=== PATIENT | female | born 1985 | race Caucasian/White ===

== ENCOUNTER → 2018-05-01 | Outpatient (CLI) | payer OTHER ==
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
== END | disposition home or self-care (01) ==
LOC: KCIC MRI 08:50
PROVIDERS: ATTEND Orthopaedic Surgery Sports Medicine
DX: M75.102 Unspecified rotator cuff tear or rupture of left shoulder, not specified as traumatic (principal); M85.612 Other cyst of bone, left shoulder
CPT/HCPCS: 73221

== ENCOUNTER 2018-06-03 08:25 | Day surgery (SDC) | payer OTHER ==
[~2018-06-03] VITALS: Ht 175.3 cm; Wt 142.9 kg
[~2018-06-03 08:25] MED LIST: CLINDAMYCIN 900MG PREMIX 50 ML IV PRN; HYDROmorphone 2 MG/ML VIAL IV PRN; IV RINGERS,LACTATED 1000ML 1,000 ML IV SCH; LIDOCAINE 1% PF 2 ML VIAL. ID PRN; LORA10TA68 PO; MORPHINE SULFATE 2 MG/ML VIAL. IV PRN; ONDANSETRON PF 4 MG/2 ML VIAL. IV PRN; PROCHLORPERAZINE 10 MG/2 ML VIAL. IV PRN; TRAM50TA PO; fentaNYL PF VIAL 100 MCG/2 ML VIAL IV PRN
[2018-06-03] MEDS ORDERED: ROCURONIUM 50 MG/5 ML VIAL. ONE (09:17)
[2018-06-03] MEDS ORDERED: PROPOFOL 20 ML IV ONE ×2 (09:17→10:45)
[2018-06-03] MEDS ORDERED: LIDOCAINE 1% PF 5 ML VIAL. ONE (09:17)
[2018-06-03] MEDS ORDERED: fentaNYL PF VIAL 100 MCG/2 ML VIAL ONE (09:17)
[2018-06-03] MEDS ORDERED: DEXAMETHASONE SOD PHOS 20 MG/5 ML VIAL. ONE (09:45)
[2018-06-03] MEDS ORDERED: ROPIVacaine 0.5% PF 20 ML VIAL. ONE ×2 (09:45→09:48)
[2018-06-03] MEDS ORDERED: MIDAZOLAM HCL/PF 2 MG/2 ML VIAL. ONE (09:49)
[2018-06-03] MEDS ORDERED: BUPIVACAINE MPF 0.5% 30 ML VIAL. ONE (10:00)
[2018-06-03] MEDS ORDERED: LIDOCAINE 1% 20 ML VIAL. ONE (10:00)
[2018-06-03 10:31] LABS: U PREG PATIENT NEGATIVE (NEG)
[2018-06-03] MEDS ORDERED: NEOSTIGMINE METHYLSULFATE 5 MG/5 ML SYRINGE. ONE (10:46)
[2018-06-03] MEDS ORDERED: GLYCOPYRROLATE 1 MG/5 ML VIAL. ONE (10:46)
[2018-06-03] MEDS ORDERED: ONDANSETRON PF 4 MG/2 ML VIAL. ONE (10:46)
--- NOTE | 2018-06-03 11:44 | PDOC4 ---
Operative Note Operative Note Date of procedure: 06/03/2018 Surgeon: Julian Mcgowan Preoperative diagnosis: Left shoulder incomplete rotator cuff tear Postoperative diagnosis: Same Procedure performed: Left shoulder arthroscopic rotator cuff repair Anesthesia: Gen. plus regional nerve block Findings: Near full-thickness tear and infraspinatus, 1 cm in length Intact labrum Intact glenohumeral cartilage No loose bodies Remainder rotator cuff showed no gross pathology Biceps tendon without pathology No loose bodies Components inserted: Saleh and nephew helacoil anchor Complications: None Blood loss: 10 mL Reason for procedure: Patient is a very pleasant 32-year-old female with persistent shoulder pain and dysfunction. Clinical and radiographic examination including MRI were consistent with the preoperative diagnosis and after discussion of the risks, benefits, and alternatives as well as. A linear of conservative therapies, we discussed proceeding with the above surgery and she wished to proceed. Description of procedure: Patient was greeted in the preoperative holding area by myself for the correct extremity was verified and marked. She is in taken to the operative suite after placement of a regional nerve block by the anesthesiology team. Once in the operating room, she was transferred gently supine to the operating table. Her antibiotics were started. She had successful induction of a general anesthetic and was then sat up in a beachchair position with a large pad under her legs, secured the bed with all pressure points padded and C-spine maintained in neutral position. We then proceeded to prep and drape left upper extremity and shoulder girdle in our usual sterile fashion including [place] at the periphery. Timeout was conducted. I palpated and marked surface anatomy and used a spinal needle to localize my posterior superior portal and incised skin in accordance with this. I introduce the blunt arthroscopic trocar followed by the camera. I then used a spinal needle to localize an anterosuperior portal and incised skin in accordance with this. I dilated this hole and introduce my probe. I then conducted my diagnostic arthroscopy with the above-noted findings. I then debrided the rotator cuff tear from an intra-articular vantage point and then shuttled a PDS suture through the tear to humble it. I then removed my arthroscopic interpretation from the intra-articular space and repositioned into the subacromial space and used a spinal needle to localize a lateral portal and incised skin and dilated this hole. I then used my shaver and cautery device to perform a bursectomy. Identified the PDS suture and was easily able to violate the substance of the tendon with the blunt trocar. I then took down the rotator cuff tendon at this area and used the shaver to debride the unhealthy tissue. I prepared my footprint, taking care not to decorticate. After this, I placed my suture anchor which gave good fixation. I then used the suture passing device to shuttle the suture limbs through in a simple configuration and tied these down from posterior to anterior using arthroscopic knot-tying techniques. The tear was stable to gentle motion at her shoulder. I then removed all loose debris and the excess arthroscopic fluid followed by the instrumentation. The portals were closed with simple interrupted 3-0 nylon. It should be noted I did create an anterolateral portal under spinal needle localization to assist with suture management for this procedure. At the conclusion of surgery, the shoulder and arm were cleansed and dried and a sterile dressing was applied followed by an abduction pillow sling. She was laid supine and transferred gently supine to the recovery room cart. She tolerated surgery well. No complications. She was then taken to the PACU in a stable and extubated condition. Postoperative plan is to discharge her home, nonweightbearing in sling 4 weeks. I'll see her back in 2 weeks, sooner should a problem arise JULIAN MCGOWAN II, MD Jun 03, 2018 11:44
[2018-06-03] MEDS ORDERED: oxyCODONE/APAP 5/325 1 TAB TABLET PO ONE (12:15)
--- NOTE | 2018-06-03 12:15 | DISCH ---
DISCHARGE INSTRUCTIONS Condition on Discharge Condition on Discharge: Stable Activity After Discharge Activity Instructions for Disc: Other ROM activity Other activity instructions: arm to remain in sling Bathing Instructions: Shower-keep dressing dry Weight Bearing Status after Di: Non weight bearing Wound Incision Care Wound/Incision Care: Ice to area for comfort, Keep wound/cast CDI, Change dressing Other wound/incision instructi: ok to change dressing in [address] after DC Call your doctor for: Concerns you may have Follow-Up Follow up with: Lois in 2 wks Follow Up With: PT within 1 wk CRISTINA MCGOWAN II, MD Jun 03, 2018 12:15
[2018-06-03] MEDS ORDERED: OXYC-323 PO (12:22)
[2018-06-03] MEDS ORDERED: ONDA8TAB12 PO (12:23)
[2018-06-03] MEDS ORDERED: DOCU-109 PO (12:23)
[2018-06-03 13:00] VITALS: BP 140/60
== END 2018-06-03 14:03 | disposition home or self-care (01) ==
LOC: SURG 08:25
PROVIDERS: ATTEND Orthopaedic Surgery Sports Medicine
DX: S46.012A Strain of muscle(s) and tendon(s) of the rotator cuff of left shoulder, initial encounter (principal); X58.XXXA Exposure to other specified factors, initial encounter; Y93.89 Activity, other specified; Y92.89 Other specified places as the place of occurrence of the external cause; Y99.8 Other external cause status
CPT/HCPCS: 29827; 81025; A7015; C1713; C1782; J1100; J2250; J2405; J2704; J2710; J2795; J3010; J3490; J7120

== ENCOUNTER → 2018-07-16 | Outpatient (CLI) | payer OTHER ==
[~2018-07-16] MED LIST changes: +BUPIVACAINE MPF 0.5% 10 ML VIAL for KCIC. IJ ONE; -CLINDAMYCIN 900MG PREMIX 50 ML IV PRN; +DOCU-109 PO; -HYDROmorphone 2 MG/ML VIAL IV PRN; +IOHEXOL 300 MG/ML 50 ML VIAL. INT ART ONE; -IV RINGERS,LACTATED 1000ML 1,000 ML IV SCH; +LIDOCAINE 1% Multi-Dose 20 ML VIAL. ID ONE; -LIDOCAINE 1% PF 2 ML VIAL. ID PRN; -MORPHINE SULFATE 2 MG/ML VIAL. IV PRN; +ONDA8TAB12 PO; -ONDANSETRON PF 4 MG/2 ML VIAL. IV PRN; +OXYC1TAB15 PO; -PROCHLORPERAZINE 10 MG/2 ML VIAL. IV PRN; -fentaNYL PF VIAL 100 MCG/2 ML VIAL IV PRN; +methylPREDNISolone ACETATE 40 MG/ML VIAL. INT ART ONE
--- NOTE | 2018-07-16 17:22 | KCIC ---
Therapeutic left bicipital groove injection using fluoroscopic guidance. HISTORY: Pain. TECHNIQUE The procedure was explained to the patient as were potential risks, including among others infection, bleeding or allergic reaction. All questions were answered. Informed written consent was obtained. The anterior shoulder was prepped and draped in the usual sterile manner. Following administration of local anesthetic, a 22-gauge needle was advanced to the bicipital groove without difficulty. Proper needle position was confirmed with injection of 1 cc Omnipaque 300 contrast. A mixture of 1 cc (40 mg) Depo-Medrol, and 1 cc 0.5% Marcaine were injected without difficulty. The needle was removed. There was good hemostasis at the injection site. The patient left in stable condition without immediate complication. 2 spot images are obtained. FLUOROSCOPY TIME: 25 seconds Electronically signed by: Jag Hearn MD (07/16/2018 5:17 PM) [id number]
== END | disposition home or self-care (01) ==
LOC: KCIC 14:27
PROVIDERS: ATTEND Orthopaedic Surgery Sports Medicine
DX: M75.22 Bicipital tendinitis, left shoulder (principal); Z88.1 Allergy status to other antibiotic agents; Z88.8 Allergy status to other drugs, medicaments and biological substances; F17.200 Nicotine dependence, unspecified, uncomplicated; Z98.51 Tubal ligation status; Z98.890 Other specified postprocedural states
CPT/HCPCS: 20610; 77002; J1030; Q9967